=== PATIENT | male | born 1995 | race Caucasian/White ===

== ENCOUNTER 2017-10-17 15:03 | Emergency (ER) | payer OTHER ==
[2017-10-17] MEDS: LIDOCAINE 2% MDV 20 ML VIAL SC (16:30)
== END 2017-10-17 17:53 | disposition home or self-care (01) ==
LOC: M ED 15:03
DX: S60.450A Superficial foreign body of right index finger, initial encounter (principal); W45.8XXA Other foreign body or object entering through skin, initial encounter; Y92.89 Other specified places as the place of occurrence of the external cause
CPT/HCPCS: 73140